=== PATIENT | female | born 2000 | race Caucasian/White ===

== ENCOUNTER 2020-02-24 00:51 | Outpatient (CLI) | payer MEDICAID, SELFPAY ==
--- NOTE | 2020-02-24 | DI.US_ITS ---
EXAM: US PELVIS TRANSVAGINAL CLINICAL HISTORY: F/U RT OVARIAN CYST,N83.201 TECHNIQUE: Ultrasound performed using standard protocol. COMPARISON: No exams were available for comparison FINDINGS: Pelvic ultrasound was performed transabdominally and transvaginally. Uterus measures 6.0 x 2.8 x 4.7 cm in diameter. Endometrial stripe is about 9 millimeters in thickne ss and appears homogeneous. No free fluid identified in the pelvis. The ovaries have a normal follicular appearance, right ovary measures 31 x 17 x 19 millimeters in kimberlee meter and left ovary measures 36 x 25 x 21 millimeters. Doppler evaluation of the ovaries is unremarkable. IMPRESSION: Normal pelvic ultrasound. Unremarkable appearance of the ovaries. DATA REPOSITORY:
== END 2020-02-24 01:11 ==
PROVIDERS: Visit Provider Obstetrics & Gynecology
DX: N83.291 Other ovarian cyst, right side (principal)
CPT/HCPCS: 76830; 76856